=== PATIENT | male | born 2000 | race Caucasian/White ===

== ENCOUNTER 2021-01-07 02:11 | Inpatient (IN) | payer OTHER, SELFPAY ==
[2021-01-07] MEDS ORDERED: Ondansetron PF 4 MG/2 ML Vial IVP PRN (04:38)
[2021-01-07] MEDS ORDERED: Acetaminophen 325 MG TAB PO PRN (04:38)
[2021-01-07] MEDS ORDERED: Ondansetron ODT 4 MG TAB PO PRN (04:38)
[2021-01-07] MEDS ORDERED: Acetaminophen 650 MG Suppository PR PRN (04:38)
[2021-01-07] MEDS ORDERED: Ventilator Sedation Protocol 1 EACH FS SCH (04:45)
[2021-01-07] MEDS ORDERED: Propofol 1,000 MG/100 ML VIAL IV ONE (04:49)
[2021-01-07] MEDS ORDERED: Propofol BOLUS 1,000 MG/100 ML VIAL IV PRN (05:00)
[2021-01-07] MEDS ORDERED: Morphine 2 MG/ML VIAL SLOW IVP PRN (05:00)
[2021-01-07] MEDS ORDERED: DISCONTINUE PREVIOUS NARCOTIC PAIN MEDICATIONS AND BENZODIAZEPINES FS SCH (05:00)
[2021-01-07] MEDS ORDERED: Fentanyl BOLUS 250 ML IVPB PRN (05:00)
[2021-01-07] MEDS ORDERED: Fentanyl CADD 100 ML IV SCH (05:00)
[2021-01-07] MEDS ORDERED: Lorazepam 2 MG/ML VIAL SLOW IVP PRN ×2 (05:00→10:49)
[2021-01-07] MEDS ORDERED: Propofol 1,000 MG/100 ML VIAL IV PRN (05:00)
[2021-01-07 05:18] VITALS: BP 109/68
[2021-01-07] MEDS ORDERED: diphenhydrAMINE 50 MG/ML VIAL IVP SCH (05:45)
[2021-01-07] MEDS: Dextrose 5 % And 0.9 % NaCl 1,000 ML IV SCH ×3 (07:05→16:52)
[2021-01-07 07:27] VITALS: BMI 259046.2
[2021-01-07] MEDS ORDERED: Ibuprofen 800 MG TAB PO PRN (08:07)
[2021-01-07] MEDS ORDERED: diphenhydrAMINE 25 MG CAP PO PRN (08:52)
[2021-01-07] MEDS ORDERED: Prevnar 13-Val Conj/PF 0.5 ML SYRINGE IM ONE (09:00)
[2021-01-07] MEDS ORDERED: Lorazepam 2 MG/ML VIAL SLOW IVP SCH (11:00)
[2021-01-07 13:21] LABS: Anion Gap 14 mmol/L (10-20); BUN (Urea Nitrogen) 8 mg/dL (8.9-20.6); Calc. Creatinine Clearance 159 mL/min (70-130); Calcium 7.9 mg/dL (7.8-10.44); Carbon Dioxide 22 mmol/L (22-29); Chloride 109 mmol/L (98-107); Glucose 90 mg/dL (70-105); Potassium 3.9 mmol/L (3.5-5.1); Sodium 141 mmol/L (136-145)
[2021-01-08] MEDS: Dextrose 5 % And 0.9 % NaCl 1,000 ML IV SCH ×2 (00:17→07:57)
[2021-01-08 03:41] LABS: #Basophils 0.1 thou/uL (0.0-0.2); #Eosinphils 0.1 thou/uL (0.0-0.7); #Lymphocytes 1.8 thou/uL (1.20-3.40); #Monocytes 1.3 thou/uL (0.11-0.59); %Basophils 0.7 % (0.0-1.0); %Eosinophils 0.4 % (0.0-10.0); %Lymphocytes 10.9 % (28.0-48.0); %Monocytes 7.8 % (0.0-4.0); %Neutrophils 80.3 % (31.0-61.0); Hemoglobin 14.6 g/dL (14.0-18.0); Mean Corpuscular HGB CONC 34.4 g/dL (32.0-36.0); Mean Corpuscular Hemoglobin 32.1 pg (25.0-35.0); Mean Corpuscular Volume 93.4 fL (78.0-98.0); Mean Platelet Volume 7.7 fL (7.4-10.4); Platelet Count 203 thou/uL (130-400); RBC Distribution Width 12.1 % (11.5-14.5); Red Blood Cell (RBC) Count 4.53 mill/uL (4.00-5.20); White Blood Cell (WBC) Count 16.2 thou/uL (4.8-10.8)
[2021-01-08 03:56] LABS: Anion Gap 11 mmol/L (10-20); BUN (Urea Nitrogen) 7 mg/dL (8.9-20.6); Calc. Creatinine Clearance 171 mL/min (70-130); Calcium 8.9 mg/dL (7.8-10.44); Carbon Dioxide 25 mmol/L (22-29); Chloride 106 mmol/L (98-107); Glucose 105 mg/dL (70-105); Potassium 3.8 mmol/L (3.5-5.1); Sodium 138 mmol/L (136-145)
[2021-01-08 14:06] VITALS: TEMP 99.1
== END 2021-01-08 14:45 | disposition home or self-care (01) | DRG 917 ==
LOC: CCU 02:11
PROVIDERS: ADMIT Student in an Organized Health Care Education/Training Program; ATTEND Internal Medicine
PROC: 5A1935Z Respiratory Ventilation, Less than 24 Consecutive Hours (ICD-10-PCS; principal; 2021-01-07)
DX: T51.0X2A Toxic effect of ethanol, intentional self-harm, initial encounter (principal); J96.01 Acute respiratory failure with hypoxia; F10.129 Alcohol abuse with intoxication, unspecified; Z20.822 Contact with and (suspected) exposure to COVID-19; L30.9 Dermatitis, unspecified; Y90.8 Blood alcohol level of 240 mg/100 ml or more; E86.0 Dehydration
CPT/HCPCS: 36415; 36416; 80048; 85025; 94002; J2060; J2704; Q0163